=== PATIENT | male | born 1945 | race Caucasian/White ===

== ENCOUNTER 2017-05-26 06:28 | Emergency (ER) | payer MEDICARE ==
--- NOTE | ~2017-05-26 | CR210 ---
[facility] A Service of [facility] RADIOLOGY TEXT RESULTS PATIENT: ARIELLA HILARIO LOCATION: [facility] : 49 UNIT #: [id number] AGE: [address]: Dorian Chiu MD SEX: M ORDER DR: [id number] [facility] [address] [place], [place] [address] [id number] E MR#: [id number] #: [id number] NAME: ARIELLA HILARIO : 1945 SEX: M STUDY DATE/TIME: 05/26/2017 7:21 UNIT: [facility] ROOM: STUDY DESCRIPTION: CR Ribs Uni 2 View W PA Ch Lt Attending Physician: Dorian Chiu M.D. Ordering Physician: Dorian Chiu M.D. Primary Care Physician: Janina Deal M.D. MEDICAL IMAGING REPORT This report is preliminary unless electronic signature is present EXAM AP radiograph of the chest with PA chest and left ribs. HISTORY Left rib pain. Pain left side chest and ribs, short of air, cough last night. Fall. History of smoking. Heart cath. FINDINGS AP radiograph of the chest was done with AP and oblique radiograph of the left ribs. Nondisplaced anterolateral left sixth rib fracture. Anterolateral left seventh rib fracture, as well. Minimal displacement of the distal left seventh rib fracture fragment in cephalad direction by perhaps 2-3 mm. There is no indication of significant distraction. No other definite fractures are seen. The visualized thoracic and lumbar spine appear intact. The heart is normal in size. Mediastinal contour is normal. The lungs appear somewhat hyperinflated which may be a reflection of underlying COPD in this patient with a history of prior smoking. Correlate clinically. There is no clear indication of acute pulmonary disease. No pleural effusion or pneumothorax and no suspicious nodule. Densely calcified granuloma left lung base. Atherosclerotic arterial calcifications are seen. Visualized bowel gas pattern normal. Dictated by... Al Kendall M.D. THIS IS AN ELECTRONICALLY VERIFIED REPORT Al Kendall M.D. at 05/26/2017 5:50 PM RENETTA/joanna TD: 05/26/2017 15:40 [facility] A Service of [facility] RADIOLOGY TEXT RESULTS PATIENT: ARIELLA HILARIO LOCATION: COUNTS INCLUDE [facility] BEDS AT THE [facility] #: [id number] : 49 UNIT #: [id number] AGE: [address]: Dorian Chiu MD SEX: M ORDER DR: JOB #: [id number] MEDICAL IMAGING REPORT Page 1 of 1 COPY
--- NOTE | ~2017-05-26 | CT71 ---
[facility] A Service of [facility] RADIOLOGY TEXT RESULTS PATIENT: ARIELLA HILARIO LOCATION: [facility] : 49 UNIT #: [id number] AGE: [address]: Dorian Chiu MD SEX: M ORDER DR: [id number] [facility] [address] [place], [place] [address] [id number] E MR#: [id number] #: [id number] NAME: ARIELLA HILARIO : 1945 SEX: M STUDY DATE/TIME: 05/26/2017 7:39 UNIT: [place] ROOM: STUDY DESCRIPTION: CT Head Wo Contrast Attending Physician: Dorian Chiu M.D. Ordering Physician: Dorian Chiu M.D. Primary Care Physician: Janina Deal M.D. MEDICAL IMAGING REPORT This report is preliminary unless electronic signature is present EXAM CT head 05/26/2017 HISTORY Fall yesterday 05/25/2017, dizziness for 2 weeks, states syncope 05/25/2017. Hypertension. TECHNIQUE CT head performed skull base through vertex without intravenous contrast. This CT exam was performed with one or more of the following radiation dose reduction techniques: automatic exposure control, adjustment of mA and/or kV according to patient size, and iterative reconstruction. COMPARISON STUDIES 03/30/2017 FINDINGS Brain stem unremarkable. Cerebellum and cerebral hemispheres show normal ferrari matter-white matter differentiation overall. No hemorrhage. No evidence of acute cortical ischemia. There are periventricular and deep white matter tract hypodensities likely reflecting sequela of chronic microvascular ischemia. The midline structures are nondisplaced. The basal ganglia show no acute abnormality. The ventricles, cisterns and sulci show stable mild generalized enlargement consistent with stable mild atrophy. There are cavernous carotid arterial calcifications. Intraorbital soft tissues unremarkable. No intra or extraaxial mass effect or abnormal intracranial fluid collection. Visualized paranasal sinuses and mastoid air cells are clear. No acute appearing bony abnormality. IMPRESSION [facility] A Service of [facility] RADIOLOGY TEXT RESULTS PATIENT: ARIELLA HILARIO LOCATION: [facility] #: [id number] : 49 UNIT #: [id number] AGE: [address]: Dorian Chiu MD SEX: M ORDER DR: 1. No acute appearing abnormality seen in brain. If the patient has ongoing neurologic symptoms, consider followup imaging. 2. Chronic changes include the following: Periventricular and deep white matter tract probable sequela of chronic microvascular ischemia, mild generalized atrophy, cavernous carotid arterial calcifications. Dictated by... Al Kendall M.D. THIS IS AN ELECTRONICALLY VERIFIED REPORT Al Kendall M.D. at 05/26/2017 5:50 PM Kuldeep TD: 05/26/2017 15:39 JOB #: [id number] MEDICAL IMAGING REPORT Page 1 of 1 COPY
--- NOTE | ~2017-05-26 | EKG ---
PATIENT: ARIELLA HILARIO UNIT #: [id number] Ventricular Rate: 78 BPM Atrial Rate: 78 BPM P-R Interval: 156 ms QRS Duration: 96 ms Q-T Interval: 420 ms QTC Calculation(Bezet): 478 ms P [place]: 73 degrees Calculated R [place]: 78 degrees Calculated T [place]: 85 degrees Diagnosis Line: Normal sinus rhythm Diagnosis Line: ST and T wave abnormality, consider anterior Diagnosis Line: ischemia Diagnosis Line: Prolonged QT Diagnosis Line: Abnormal ECG Diagnosis Line: When compared with ECG of 02-JAN-2017 08:48, Diagnosis Line: Nonspecific T wave abnormality no longer evident Diagnosis Line: in Inferior leads Diagnosis Line: T wave inversion no longer evident in Lateral Diagnosis Line: leads Diagnosis Line: Confirmed by ANITA CRISTINA MD ([id number]) on Diagnosis Line: 05/26/2017 11:05:20 AM INTERPRETING MD: IBETH HEARD
[~2017-05-26 06:28] MED LIST: ASPIRIN PO; BLOOD PRESSURE MED; BUSPAR15 M3 PO; CATAPRES0.3 MG PO; CITALOPRAM HBR40 M1 PO; CITALOPRAM HBR40 MG PO; CLONIDINE HCL0.3 MG PO; FLEXERIL PO; FLEXERIL10 MG PO; FLOMAX0.4 M1 PO; GABAPENTIN300 M2 PO; GABAPENTIN300 MG PO; KEFLEX PO; LISINOPRIL-HCTZ1 T14 PO; LOPID600 MG PO; LORTAB 10-3251 EACH PO; MULTI-VITAMIN1 EAC1 PO; NORCO 10/325 TA1 TAB PO; OMEPRAZOLE40 M1 PO; PAXIL PO; PERCOCET10 PO; REMERON PO; REMERON30 MG/UDTA PO
[2017-05-26 07:06] LABS: BASOPHIL# 0.1 X10e3 (0-0.3); EOSINOPHIL# 0.4 X10e3 (0-0.7); EOSINOPHIL% 4.1 % (0.0-7.0); HEMOGLOBIN 14.3 gm/dL (13.0-16.0); LYMPHOCYTE# 2.1 X10e3 (1.0-3.5); LYMPHOCYTE% 24.1 % (17.0-45.0); MEAN CELL VOLUME 91.6 FL (83-96); MEAN CORPUSCULAR HEMOGLOBIN 31.2 PG (28-34); MEAN CORPUSCULAR HGB CONC 34.1 g/dL (30-36); MEAN PLATELET VOLUME 8.8 FL (6.5-11.5); MONOCYTE# 1.1 X10e3 (0-1.0); NEUTROPHIL# 5.1 X10e3 (1.5-7.1); NEUTROPHIL% 57.8 % (40-75); PLATELET COUNT 251 X10e3 (140-420); RED BLOOD COUNT 4.59 X10e (3.90-5.60); WHITE BLOOD COUNT 8.8 X10e3 (4.0-10.5)
[2017-05-26 07:08] LABS: DIFF IND NO
[2017-05-26 07:23] LABS: PARTIAL THROMBOPLASTIN TIME 24.7 SECONDS (23.5-31.3); PROTHROMBIN TIME (PATIENT) 10.7 SECONDS (10.0-11.7)
[2017-05-26 07:32] LABS: POC - CKMB <1.0 ng/mL (0.0-7.9); POC - TROPONIN <0.05 ng/mL (<=0.05)
[2017-05-26 07:37] LABS: ALBUMIN SERUM 4.2 g/dL (3.5-5.0); BILIRUBIN, DIRECT 0.1 mg/dL (0.0-0.2); BILIRUBIN,INDIRECT 0.8 mg/dL (0.0-0.9); BILIRUBIN,TOTAL 0.9 mg/dL (0.2-2.0); BUN/CREATININE RATIO 7.5; CALCIUM SERUM 9.5 mg/dL (8.4-10.2); CREATININE SERUM 1.2 mg/dL (0.6-1.4); GLOM FILT RATE Estimated 61.3 mL/min (>60); POTASSIUM 3.4 mmol/L (3.5-5.1); PROTEIN TOTAL SERUM 7.6 g/dL (6.0-8.3)
[2017-05-26 08:49] LABS: POC - CKMB <1.0 ng/mL (0.0-7.9); POC - TROPONIN <0.05 ng/mL (<=0.05)
[2017-05-26 09:44] LABS: URINE SOURCE CLEAN CATCH
[2017-05-26 09:49] LABS: URINE APPEARANCE CLEAR; URINE BILIRUBIN NEG (NEG); URINE BLOOD NEG (NEG); URINE COLOR YELLOW; URINE GLUCOSE NEG (NEG); URINE KETONE NEG (NEG); URINE LEUKOCYTE ESTERASE NEG (NEG); URINE NITRATE NEG (NEG); URINE PROTEIN NEG (NEG); URINE SPECIFIC GRAVITY 1.017 (1.003-1.035); URINE UROBILINOGEN 0.2 MG/DL (NEG)
[2017-05-26 09:54] LABS: CULTURE INDICATED? NO
== END 2017-05-26 10:04 | disposition home or self-care (01) ==
LOC: CED 06:28
PROVIDERS: Emergency Medicine
DX: S22.42XA Multiple fractures of ribs, left side, initial encounter for closed fracture (principal); F10.10 Alcohol abuse, uncomplicated; R55 Syncope and collapse; I10 Essential (primary) hypertension; X58.XXXA Exposure to other specified factors, initial encounter
CPT/HCPCS: 36415; 70450; 71101; 80048; 80076; 81003; 82553; 84484; 85025; 85610; 85730; 90715; 93005; 94010; 96361; 96374; 96375; 99284; G0480; J1885; J2405